=== PATIENT | female | born 1985 | race Caucasian/White ===

== ENCOUNTER 2019-08-21 12:56 | Emergency (ER) | payer MEDICAID, OTHER ==
[~2019-08-21] VITALS: Ht 152.4 cm; Wt 63.6 kg
[2019-08-21 12:59] VITALS: BP 107/72
[2019-08-21] MEDS ORDERED: CLIN-90 PO (13:06)
[2019-08-21] MEDS ORDERED: ketorolac tromethamine 15mg/ml inj. IM ONE (13:15)
== END 2019-08-21 13:37 | disposition home or self-care (01) ==
LOC: ER 12:57
DX: S02.5XXA Fracture of tooth (traumatic), initial encounter for closed fracture (principal); F15.90 Other stimulant use, unspecified, uncomplicated; F11.90 Opioid use, unspecified, uncomplicated; Z79.899 Other long term (current) drug therapy; Z88.8 Allergy status to other drugs, medicaments and biological substances; X58.XXXA Exposure to other specified factors, initial encounter; Y93.89 Activity, other specified; Y92.89 Other specified places as the place of occurrence of the external cause; Y99.8 Other external cause status
CPT/HCPCS: 96372; 99283; J1885

== ENCOUNTER 2019-10-17 22:19 | Emergency (ER) | payer MEDICAID ==
[~2019-10-17] VITALS: Ht 152.4 cm; Wt 63.6 kg
[~2019-10-17 22:19] MED LIST: CLIN-97 PO
[2019-10-17] MEDS ORDERED: normal saline 1000ML IV soln IVB ONE (22:40)
[2019-10-17] MEDS ORDERED: ketorolac tromethamine 15mg/ml inj. IV ONE (22:40)
[2019-10-17 23:20] LABS: CLARITY,URINE CLEAR (Clear); COLOR,URINE YELLOW (Yellow); GLUCOSE, URINE NEGATIVE (Neg); KETONES,URINE NEGATIVE (Neg); LEUKOCYTE ESTERASE ,URINE NEGATIVE (Neg); NITRITES, URINE NEGATIVE (Neg); OCCULT BLOOD,URINE NEGATIVE (Neg); PH,URINE 5.5 (4.8-8.0); PROTEIN,URINE NEGATIVE (Neg); UROBILINOGEN,URINE 0.2 E.U/dL (0.2-1.0)
[2019-10-17 23:20] LABS: BASOPHILS % (AUTO) 0.3 % (0-1); EOSINOPHILS # (AUTO) 0.2 X10'3 (0-0.9); EOSINOPHILS % (AUTO) 2.6 % (0-6); HEMATOCRIT 42.6 % (35.0-45.0); HEMOGLOBIN 14.5 g/dl (12.0-16.0); LYMPHOCYTES # (AUTO) 2.5 X10'3 (1.1-4.8); LYMPHOCYTES % (AUTO) 33.3 % (21-51); MEAN CORPUSCULAR HGB CONC 33.9 g/dL (33.0-36.5); MEAN CORPUSCULAR VOLUME 91.5 FL (78-98); MONOCYTES # (AUTO) 0.7 X10'3 (0-0.9); MONOCYTES % (AUTO) 9.9 % (2-12); NEUTROPHILS % (AUTO) 53.9 % (42-75); PLATELET COUNT 287 X10'3 (140-440); RED BLOOD COUNT 4.66 X10'6 (4.20-5.60); RED CELL DISTRIBUTION WIDTH 12.9 % (11.5-14.5); WHITE BLOOD COUNT 7.4 X10'3 (4.5-11.0)
[2019-10-17 23:21] LABS: UA COLLECTION TYPE CLN CATCH MIDSTREAM
[2019-10-17 23:28] LABS: ALANINE AMINOTRANSFERASE 40 U/L (12-78); ALBUMIN 3.4 G/DL (3.4-5.0); ALKALINE PHOSPHATASE 82 IU/L (46-116); ANION GAP 8 (8-16); ASPARTATE AMINO TRANSFERASE 25 U/L (10-37); BILIRUBIN,TOTAL 0.3 MG/DL (0.1-1.0); BLOOD UREA NITROGEN 15 MG/DL (7-18); CALCIUM 9.1 MG/DL (8.5-10.1); CHLORIDE 106 MMOL/L (99-107); CREATININE 1.07 MG/DL (0.40-0.90); GLUCOSE 100 MG/DL (70-104); POTASSIUM 3.6 MMOL/L (3.5-5.1); SODIUM 141 MMOL/L (135-145); TOTAL PROTEIN 6.9 G/DL (6.4-8.2); eGFR 58 ML/MIN
[2019-10-17] MEDS ORDERED: IBUP-1985 PO (23:58)
[2019-10-18 00:06] VITALS: BP 106/73
== END 2019-10-18 00:08 | disposition home or self-care (01) ==
LOC: ER 22:19
DX: R07.81 Pleurodynia (principal); R10.11 Right upper quadrant pain; F17.200 Nicotine dependence, unspecified, uncomplicated; F15.90 Other stimulant use, unspecified, uncomplicated; F11.90 Opioid use, unspecified, uncomplicated; Z87.442 Personal history of urinary calculi; Z88.6 Allergy status to analgesic agent; Z88.8 Allergy status to other drugs, medicaments and biological substances; Z79.2 Long term (current) use of antibiotics; Z79.899 Other long term (current) drug therapy
CPT/HCPCS: 36415; 71046; 80053; 81003; 85025; 93005; 96374; 99285; J1885; J7030

== ENCOUNTER 2019-11-26 12:05 | Emergency (ER) | payer MEDICAID ==
[~2019-11-26] VITALS: Ht 152.4 cm; Wt 70.2 kg
[~2019-11-26 12:05] MED LIST changes: +IBUP-1985 PO
[2019-11-26 12:24] VITALS: BP 131/78
== END 2019-11-26 13:15 | disposition home or self-care (01) ==
LOC: ER 12:06
DX: S63.502A Unspecified sprain of left wrist, initial encounter (principal); F15.90 Other stimulant use, unspecified, uncomplicated; F11.90 Opioid use, unspecified, uncomplicated; Z88.6 Allergy status to analgesic agent; Z88.8 Allergy status to other drugs, medicaments and biological substances; Z79.2 Long term (current) use of antibiotics; Z79.899 Other long term (current) drug therapy; W22.8XXA Striking against or struck by other objects, initial encounter; Y93.89 Activity, other specified; Y92.410 Unspecified street and highway as the place of occurrence of the external cause; Y99.8 Other external cause status
CPT/HCPCS: 29125; 73110; 73130; 99284

== ENCOUNTER → 2020-03-01 | Emergency (ER) | payer MEDICAID ==
[~2020-03-01] VITALS: Ht 152.4 cm; Wt 69.0 kg
[~2020-03-01] MED LIST changes: +ciprofloxacin 0.3% 2.5ml ophthalmic solution RIGHTEYE ONE; +proparacaine 0.5% ophthalmic drops 15ml RIGHTEYE ONE
[2020-03-01 20:26] VITALS: BP 132/96
== END | disposition home or self-care (01) ==
LOC: ER 20:28
DX: S05.01XA Injury of conjunctiva and corneal abrasion without foreign body, right eye, initial encounter (principal); F15.90 Other stimulant use, unspecified, uncomplicated; F11.90 Opioid use, unspecified, uncomplicated; Z87.442 Personal history of urinary calculi; Z88.8 Allergy status to other drugs, medicaments and biological substances; Z79.899 Other long term (current) drug therapy; X58.XXXA Exposure to other specified factors, initial encounter; Y93.89 Activity, other specified; Y92.89 Other specified places as the place of occurrence of the external cause; Y99.8 Other external cause status
CPT/HCPCS: 99283

== ENCOUNTER 2020-04-03 19:16 | Emergency (ER) | payer MEDICAID ==
[~2020-04-03] VITALS: Ht 152.4 cm; Wt 68.2 kg
[~2020-04-03 19:16] MED LIST changes: -ciprofloxacin 0.3% 2.5ml ophthalmic solution RIGHTEYE ONE; -proparacaine 0.5% ophthalmic drops 15ml RIGHTEYE ONE
[2020-04-03 19:37] VITALS: BP 116/83
[2020-04-03 19:58] LABS: URINE HCG NEGATIVE (NEG)
[2020-04-03 20:14] LABS: CLARITY,URINE CLOUDY (Clear); GLUCOSE, URINE NEGATIVE (Neg); KETONES,URINE NEGATIVE (Neg); LEUKOCYTE ESTERASE ,URINE SMALL (Neg); NITRITES, URINE NEGATIVE (Neg); OCCULT BLOOD,URINE NEGATIVE (Neg); PROTEIN,URINE NEGATIVE (Neg); UROBILINOGEN,URINE >=8.0 E.U/dL (0.2-1.0)
[2020-04-03 20:22] LABS: UA COLLECTION TYPE CLN CATCH MIDSTREAM
[2020-04-03 20:23] LABS: COLOR,URINE DARK YELLOW (Yellow)
[2020-04-03 20:25] LABS: BACTERIA,URINE 1+ /HPF (Neg); MUCUS STRANDS MANY /LPF (Neg); RBC,URINE NONE SEEN /HPF (0-2)
[2020-04-03 20:26] LABS: CAL OXALATE CRYSTALS 4+ /HPF (NEGATIVE); SQUAMOUS EPITHELIAL CELL,UR MANY /LPF (FEW)
[2020-04-03] MEDS ORDERED: azithromycin 250mg tablet PO ONE (20:45)
[2020-04-03] MEDS ORDERED: CefTRIAXone 250MG IM Kit w/LIDOcaine IM ONE (20:45)
[2020-04-03] MEDS ORDERED: SULF1TAB49 PO (20:55)
[2020-04-03] MEDS ORDERED: PHEN-824 PO (20:55)
== END 2020-04-03 21:19 | disposition home or self-care (01) ==
LOC: ER 19:18
DX: R30.0 Dysuria (principal); N93.8 Other specified abnormal uterine and vaginal bleeding; F15.90 Other stimulant use, unspecified, uncomplicated; F11.90 Opioid use, unspecified, uncomplicated; Z87.442 Personal history of urinary calculi; Z88.6 Allergy status to analgesic agent; Z88.8 Allergy status to other drugs, medicaments and biological substances; Z79.2 Long term (current) use of antibiotics; Z79.899 Other long term (current) drug therapy
CPT/HCPCS: 36415; 81001; 81025; 87491; 87591; 96372; 99283; J0696

== ENCOUNTER 2020-04-20 13:36 | Emergency (ER) | payer MEDICAID ==
[~2020-04-20] VITALS: Ht 152.4 cm; Wt 67.6 kg
[~2020-04-20 13:36] MED LIST changes: +PHEN-824 PO
[2020-04-20] MEDS ORDERED: normal saline 1000ML IV soln IVB ONE (14:10)
[2020-04-20 14:13] LABS: URINE HCG NEGATIVE (NEG)
[2020-04-20 14:24] LABS: CLARITY,URINE SLIGHTLY CLOUDY (Clear); COLOR,URINE STRAW (Yellow); GLUCOSE, URINE NEGATIVE (Neg); KETONES,URINE NEGATIVE (Neg); LEUKOCYTE ESTERASE ,URINE TRACE (Neg); NITRITES, URINE NEGATIVE (Neg); OCCULT BLOOD,URINE NEGATIVE (Neg); PH,URINE 5.5 (4.8-8.0); PROTEIN,URINE NEGATIVE (Neg); UA COLLECTION TYPE CLN CATCH MIDSTREAM; UROBILINOGEN,URINE 0.2 E.U/dL (0.2-1.0)
[2020-04-20 14:30] LABS: RBC,URINE NONE SEEN /HPF (0-2); WBC,URINE 0-4 /HPF (0-4)
[2020-04-20 14:31] LABS: BACTERIA,URINE FEW /HPF (Neg); MUCUS STRANDS NONE SEEN /LPF (Neg); SQUAMOUS EPITHELIAL CELL,UR FEW /LPF (FEW)
[2020-04-20 14:36] LABS: BASOPHILS % (AUTO) 0.3 % (0-1); EOSINOPHILS # (AUTO) 0.2 X10'3 (0-0.9); EOSINOPHILS % (AUTO) 2.6 % (0-6); HEMATOCRIT 45.4 % (35.0-45.0); HEMOGLOBIN 15.2 g/dl (12.0-16.0); LYMPHOCYTES % (AUTO) 29.3 % (21-51); MEAN CORPUSCULAR HEMOGLOBIN 30.6 PG (27.0-31.0); MEAN CORPUSCULAR HGB CONC 33.5 g/dL (33.0-36.5); MEAN CORPUSCULAR VOLUME 91.5 FL (78-98); MEAN PLATELET VOLUME 9.5 FL (7.4-10.4); MONOCYTES # (AUTO) 0.5 X10'3 (0-0.9); MONOCYTES % (AUTO) 7.9 % (2-12); NEUTROPHILS % (AUTO) 59.9 % (42-75); PLATELET COUNT 252 X10'3 (140-440); RED BLOOD COUNT 4.96 X10'6 (4.20-5.60); RED CELL DISTRIBUTION WIDTH 13.3 % (11.5-14.5); WHITE BLOOD COUNT 6.8 X10'3 (4.5-11.0)
[2020-04-20 14:51] LABS: ALANINE AMINOTRANSFERASE 24 U/L (12-78); ALBUMIN 3.6 G/DL (3.4-5.0); ALKALINE PHOSPHATASE 81 IU/L (46-116); ANION GAP 13 (8-16); ASPARTATE AMINO TRANSFERASE 17 U/L (10-37); BILIRUBIN,TOTAL 0.5 MG/DL (0.1-1.0); BLOOD UREA NITROGEN 10 MG/DL (7-18); BUN/CREATININE RATIO 14.1 (6.6-38.0); CALCIUM 8.6 MG/DL (8.5-10.1); CHLORIDE 105 MMOL/L (99-107); CREATININE 0.71 MG/DL (0.40-0.90); GLUCOSE 81 MG/DL (70-104); POTASSIUM 3.7 MMOL/L (3.5-5.1); SODIUM 139 MMOL/L (135-145); TOTAL CARBON DIOXIDE 21.5 MMOL/L (24-32); TOTAL PROTEIN 7.1 G/DL (6.4-8.2); eGFR > 90 ML/MIN
[2020-04-20] MEDS ORDERED: HYDROcodone/acetaminophen 10/325mg tab PO ONE (15:25)
[2020-04-20] MEDS ORDERED: TRAM50TA2 PO (16:11)
[2020-04-20 16:28] VITALS: BP 119/64
== END 2020-04-20 16:29 | disposition home or self-care (01) ==
LOC: ER 13:37
DX: K80.50 Calculus of bile duct without cholangitis or cholecystitis without obstruction (principal); R10.11 Right upper quadrant pain; M54.89 Other dorsalgia; R11.0 Nausea; F17.200 Nicotine dependence, unspecified, uncomplicated; F15.90 Other stimulant use, unspecified, uncomplicated; Z87.442 Personal history of urinary calculi; Z98.890 Other specified postprocedural states; Z88.6 Allergy status to analgesic agent; Z88.8 Allergy status to other drugs, medicaments and biological substances; Z79.2 Long term (current) use of antibiotics; Z79.899 Other long term (current) drug therapy
CPT/HCPCS: 36415; 74176; 76700; 80053; 81001; 81025; 85025; 87088; 96360; 96361; 99285; J7030

== ENCOUNTER 2020-06-14 14:14 | Emergency (ER) | payer MEDICAID ==
[~2020-06-14] VITALS: Ht 152.4 cm; Wt 62.5 kg
[2020-06-14 14:43] VITALS: BP 107/75
[2020-06-14 16:33] LABS: CLARITY,URINE SLIGHTLY CLOUDY (Clear); COLOR,URINE STRAW (Yellow); GLUCOSE, URINE NEGATIVE (Neg); KETONES,URINE NEGATIVE (Neg); LEUKOCYTE ESTERASE ,URINE NEGATIVE (Neg); NITRITES, URINE NEGATIVE (Neg); OCCULT BLOOD,URINE NEGATIVE (Neg); PROTEIN,URINE NEGATIVE (Neg); UROBILINOGEN,URINE 0.2 E.U/dL (0.2-1.0)
[2020-06-14 16:39] LABS: SQUAMOUS EPITHELIAL CELL,UR MANY /LPF (FEW); UA COLLECTION TYPE CLN CATCH MIDSTREAM
[2020-06-14 16:40] LABS: BACTERIA,URINE FEW /HPF (Neg); MUCUS STRANDS NONE SEEN /LPF (Neg); RBC,URINE 0-2 /HPF (0-2); WBC,URINE 0-4 /HPF (0-4)
--- NOTE | 2020-06-14 17:25 | NUR ---
Attempted to call back to room for the third time with no answer. Attempted to call patient at listed phone number and left voice mail. Dr. Julio michaud.
== END 2020-06-14 17:30 | disposition left against medical advice (07) ==
LOC: ER 14:15
DX: R31.9 Hematuria, unspecified (principal); Z53.21 Procedure and treatment not carried out due to patient leaving prior to being seen by health care provider
CPT/HCPCS: 81001

== ENCOUNTER 2021-03-30 12:40 | Emergency (ER) | payer MEDICAID ==
[~2021-03-30] VITALS: Ht 152.4 cm; Wt 56.4 kg
[2021-03-30 13:28] LABS: URINE HCG NEGATIVE (NEG)
[2021-03-30 13:33] LABS: BASOPHILS % (AUTO) 0.2 % (0-1); EOSINOPHILS # (AUTO) 0.1 X10'3 (0-0.9); EOSINOPHILS % (AUTO) 1.8 % (0-6); HEMATOCRIT 43.1 % (35.0-45.0); HEMOGLOBIN 14.3 g/dl (12.0-16.0); LYMPHOCYTES # (AUTO) 1.6 X10'3 (1.1-4.8); LYMPHOCYTES % (AUTO) 31.6 % (21-51); MEAN CORPUSCULAR HEMOGLOBIN 30.1 PG (27.0-31.0); MEAN CORPUSCULAR HGB CONC 33.2 g/dL (33.0-36.5); MEAN CORPUSCULAR VOLUME 90.8 FL (78-98); MEAN PLATELET VOLUME 9.7 FL (7.4-10.4); MONOCYTES # (AUTO) 0.4 X10'3 (0-0.9); MONOCYTES % (AUTO) 7.4 % (2-12); NEUTROPHILS # (AUTO) 2.9 X10'3 (1.8-7.7); PLATELET COUNT 223 X10'3 (140-440); RED BLOOD COUNT 4.75 X10'6 (4.20-5.60); RED CELL DISTRIBUTION WIDTH 14.2 % (11.5-14.5); WHITE BLOOD COUNT 4.9 X10'3 (4.5-11.0)
[2021-03-30 13:34] LABS: CLARITY,URINE CLOUDY (Clear); COLOR,URINE YELLOW (Yellow); GLUCOSE, URINE NEGATIVE (Neg); KETONES,URINE NEGATIVE (Neg); NITRITES, URINE NEGATIVE (Neg); OCCULT BLOOD,URINE NEGATIVE (Neg); PROTEIN,URINE NEGATIVE (Neg); UA COLLECTION TYPE CLN CATCH MIDSTREAM
[2021-03-30 13:35] LABS: LEUKOCYTE ESTERASE ,URINE NEGATIVE (Neg); UROBILINOGEN,URINE 0.2 E.U/dL (0.2-1.0)
[2021-03-30 13:41] LABS: ALANINE AMINOTRANSFERASE 31 U/L (12-78); ALBUMIN 3.3 G/DL (3.4-5.0); ALKALINE PHOSPHATASE 73 IU/L (46-116); ANION GAP 10 (8-16); ASPARTATE AMINO TRANSFERASE 21 U/L (10-37); BILIRUBIN,TOTAL 0.5 MG/DL (0.1-1.0); BLOOD UREA NITROGEN 11 MG/DL (7-18); BUN/CREATININE RATIO 13.4 (6.6-38.0); CALCIUM 8.4 MG/DL (8.5-10.1); CHLORIDE 110 MMOL/L (99-107); CREATININE 0.82 MG/DL (0.40-0.90); GLUCOSE 119 MG/DL (70-104); POTASSIUM 3.7 MMOL/L (3.5-5.1); SODIUM 142 MMOL/L (135-145); TOTAL CARBON DIOXIDE 22.1 MMOL/L (24-32); TOTAL PROTEIN 6.6 G/DL (6.4-8.2); eGFR 78 ML/MIN
[2021-03-30 14:09] LABS: BACTERIA,URINE 2+ /HPF (Neg); RBC,URINE 0-2 /HPF (0-2); SQUAMOUS EPITHELIAL CELL,UR MANY /LPF (FEW); WBC,URINE 0-4 /HPF (0-4)
[2021-03-30] MEDS ORDERED: ketorolac tromethamine 15mg/ml inj. IM ONE (16:00)
[2021-03-30] MEDS ORDERED: IBUP-1985 PO (16:21)
[2021-03-30] MEDS ORDERED: TRAM1TAB7 PO (16:21)
[2021-03-30 16:37] VITALS: BP 105/77
== END 2021-03-30 16:53 | disposition home or self-care (01) ==
LOC: ER 12:41
DX: N20.0 Calculus of kidney (principal); M54.50 Low back pain, unspecified; R10.84 Generalized abdominal pain; F15.90 Other stimulant use, unspecified, uncomplicated; F11.90 Opioid use, unspecified, uncomplicated; Z87.442 Personal history of urinary calculi; Z98.890 Other specified postprocedural states; Z88.6 Allergy status to analgesic agent; Z88.8 Allergy status to other drugs, medicaments and biological substances; Z79.2 Long term (current) use of antibiotics; Z79.899 Other long term (current) drug therapy
CPT/HCPCS: 36415; 76770; 80053; 81001; 81025; 85025; 96372; 99284; J1885

== ENCOUNTER 2023-11-27 10:14 | Emergency (ER) | payer MEDICAID ==
[~2023-11-27] VITALS: Ht 152.4 cm; Wt 41.5 kg
[2023-11-27 11:10] LABS: URINE HCG NEGATIVE (NEG)
[2023-11-27 11:11] LABS: BILIRUBIN,URINE NEGATIVE (Neg); CLARITY,URINE CLOUDY (Clear); COLOR,URINE YELLOW (Yellow); GLUCOSE, URINE NEGATIVE (Neg); KETONES,URINE NEGATIVE (Neg); LEUKOCYTE ESTERASE ,URINE MODERATE (Neg); NITRITES, URINE NEGATIVE (Neg); OCCULT BLOOD,URINE SMALL (Neg); PROTEIN,URINE 30 mg/dl (Neg); UROBILINOGEN,URINE 0.2 E.U/dL (0.2-1.0)
[2023-11-27 11:13] LABS: UA COLLECTION TYPE CLN CATCH MIDSTREAM
[2023-11-27 11:42] LABS: BACTERIA,URINE FEW /HPF (Neg); SQUAMOUS EPITHELIAL CELL,UR MODERATE /LPF (FEW); TRANSITIONAL EPI CELLS,URINE FEW /HPF; WBC,URINE TNTC /HPF (0-4)
[2023-11-27 11:51] LABS: BASOPHILS % (AUTO) 0.2 % (0-1); EOSINOPHILS % (AUTO) 0.5 % (0-6); HEMATOCRIT 44.1 % (35.0-45.0); HEMOGLOBIN 14.7 g/dl (12.0-16.0); LYMPHOCYTES # (AUTO) 1.4 X10'3 (1.1-4.8); LYMPHOCYTES % (AUTO) 15.4 % (21-51); MEAN CORPUSCULAR HEMOGLOBIN 29.4 PG (27.0-31.0); MEAN CORPUSCULAR HGB CONC 33.3 g/dL (33.0-36.5); MEAN CORPUSCULAR VOLUME 88.4 FL (78-98); MEAN PLATELET VOLUME 8.5 FL (7.4-10.4); MONOCYTES # (AUTO) 0.5 X10'3 (0-0.9); MONOCYTES % (AUTO) 5.4 % (2-12); NEUTROPHILS # (AUTO) 7.3 X10'3 (1.8-7.7); NEUTROPHILS % (AUTO) 78.5 % (42-75); PLATELET COUNT 353 X10'3 (140-440); RED BLOOD COUNT 4.99 X10'6 (4.20-5.60); RED CELL DISTRIBUTION WIDTH 15.1 % (11.5-14.5); WHITE BLOOD COUNT 9.2 X10'3 (4.5-11.0)
[2023-11-27 12:05] LABS: ANION GAP 6 (8-16); BLOOD UREA NITROGEN 14 MG/DL (7-18); CALCIUM 8.2 MG/DL (8.5-10.1); CHLORIDE 105 MMOL/L (99-107); GLUCOSE 88 MG/DL (70-104); SODIUM 138 MMOL/L (135-145); TOTAL CARBON DIOXIDE 26.8 MMOL/L (24-32); eCRCL 71 ML/MIN; eGFR > 90 ML/MIN
[2023-11-27] MEDS ORDERED: DOXY-11 PO (12:42)
[2023-11-27] MEDS ORDERED: NAPR-56 PO (12:43)
[2023-11-27] MEDS: CefTRIAXone 500MG IM Kit w/LIDOcaine IM ONE (12:51)
[2023-11-27 12:56] VITALS: BP 125/91; PULSE 94; RESP 16; TEMP 98.8; O2SAT 97
[2023-11-27 13:57] LABS: SYPHILIS SCREENING TEST POC NEGATIVE (Negative)
[2023-11-29 15:19] LABS: CHLAMYDIA TRACHOMATIS, NAA Negative (Negative)
== END 2023-11-27 12:59 | disposition home or self-care (01) ==
LOC: ER 10:15
DX: S20.211A Contusion of right front wall of thorax, initial encounter (principal); N39.0 Urinary tract infection, site not specified; N89.8 Other specified noninflammatory disorders of vagina; R10.2 Pelvic and perineal pain; F11.90 Opioid use, unspecified, uncomplicated; F15.90 Other stimulant use, unspecified, uncomplicated; Z88.8 Allergy status to other drugs, medicaments and biological substances; Z79.2 Long term (current) use of antibiotics; Z79.899 Other long term (current) drug therapy; X58.XXXA Exposure to other specified factors, initial encounter; Y93.89 Activity, other specified; Y92.89 Other specified places as the place of occurrence of the external cause; Y99.8 Other external cause status
CPT/HCPCS: 36415; 71101; 80048; 81001; 81025; 85025; 87088; 87491; 87591; 96372; 99284; J0696; Q0112; 87077; 87186

== ENCOUNTER 2024-01-04 10:52 | Emergency (ER) | payer MEDICAID | END 2024-01-04 14:41 | disposition left against medical advice (07) | LOC: ER 10:53 | DX: R11.2 Nausea with vomiting, unspecified (principal); Z53.21 Procedure and treatment not carried out due to patient leaving prior to being seen by health care provider; Z88.8 Allergy status to other drugs, medicaments and biological substances ==

== ENCOUNTER 2024-11-07 23:00 | Inpatient (IN) | payer MEDICAID ==
[~2024-11-07] VITALS: Ht 152.4 cm; Wt 47.3 kg
--- NOTE | 2024-11-07 23:06 | Physician Documentation ---
History of Present Illness ~ Chief Complaint: Bloody Stools Stated Complaint: GI BLEED Time Seen by MD: 23:05 Primary Medical Doctor: Pascual Amador Source: patient, RN/MD, EMS HPI 38-year-old female, who is transferred from an outside hospital with concern for an upper GI bleed. I received a phone call on this patient from an outside hospital. She was seen about a week ago for nausea and vomiting, and returned again today vomiting blood and having black tarry stools. Her hemoglobin significantly dropped over the past week. Her presentation was concerning for an upper GI bleed. She was given nausea medications, IV fluids, and Protonix. Her potassium was low and so she was given potassium repletion. She was transferred here for admission and GI consult. Per EMS, no vomiting during transport, no acute events. Here in the ED, the patient reports she is having epigastric pain, but denies Medication Reconciliation Allergies: Coded Allergies: naproxen (Verified Allergy, Intermediate, 03/30/21) RASH AND DIFFICULTY BREATHING cetirizine HCl (Verified Allergy, Unknown, 08/05/19) Scheduled Clindamycin HCL* (Clindamycin HCL*), 1 CAP PO Q8H Ibuprofen (Ibuprofen), 1 TAB PO Q8H Ibuprofen (Ibuprofen), 1 TAB PO Q8H Phenazopyridine HCl (Pyridium), 1 TAB PO Q8H Past Medical History Past Medical History: Kidney Stones, *PSYCH* Past Surgical History: other Other Past Surgical History: ureteral stenting Alcohol Use: None Drug Use: methamphetamine, heroin Lives In: Home Occupation: employed Review of Systems Gastrointestinal: Reports: nausea, vomiting, diarrhea, melena, hematemesis Physical Exam Vital Signs: Temperature: 98.0, Source: Oral, Heart Rate: 98, Respiratory Rate: 15, BP: 106/84, Pulse Oximetry: 98, Weight: 47.270 Oxygen Flow Rate: 0 General Appearance General:This is a young woman, appears older than stated age, not in distress, arrives by EMS HEENT: Atraumatic, oropharynx appears dry Heart: mild tachycardic, appears regular Lungs: normal work of breathing, normal oxygen saturation on room air Abdomen: Soft, nondistended, tender to palpation in the epigastric region only, no rebound or guarding Neuro: Alert and oriented Psychiatric: Calm and cooperative with exam Progress Results/Orders Results/Orders Orders - SRIKANTH LANDA MD Hospitalist (11/07/24 23:14) Completed Orders - SRIKANTH LANDA MD Morphine 4mg/Ml Inj. (Morphine Inj.) (11/07/24 23:03) Ondansetron Inj. (Zofran 4mg/2ml Vial) (11/07/24 23:03) Cbc/Diff (11/07/24 23:03) CMP (11/07/24 23:03) BMP (11/07/24 23:03) Type And Screen (11/07/24 23:03) Potassium Cl 20meq/100ml Bag (Potassium (11/08/24 00:20) Hgb A1c (11/07/24 23:30) MG (11/07/24:30) PBNP (11/07/24:30) Medications Received in ER Medications (Trade) Dose Ordered Sig/Blue Route PRN Reason Start Time Stop Time Status Last Admin Dose Admin (morphine inj.) 4 mg ONCE STAT IV 11/07/24 23:03 11/07/24 23:05 DC 11/08/24 00:22 4 MG (Zofran 4mg/2ml vial) 4 mg ONCE STAT IV 11/07/24 23:03 11/07/24 23:05 DC 11/08/24 00:20 4 MG Potassium Chloride 100 ml @ 100 mls/hr Q1H IV 11/08/24 00:20 11/08/24 01:19 DC 11/08/24 00:54 100 MLS/HR (Dilaudid inj.) 0.5 mg Q4H PRN IV SEVERE PAIN 7-10 11/08/24 00:50 11/08/24 03:32 0.5 MG Sodium Chloride 1,000 ml @ 100 mls/hr Q10H IV 11/08/24 00:50 11/08/24 02:19 100 MLS/HR Vital Signs 11/07/24 11/07/24 11/07/24 11/08/24 23:01 23:14 23:14 00:22 Temp 98.0 Pulse 98 110 Resp 15 16 18 B/P (MAP) 106/84 111/83 (92) Pulse Ox 98 98 O2 Flow Rate 0 0 Laboratory Tests Test 11/07/24 23:30 White Blood Count 8.1 Red Blood Count 3.51 L Hemoglobin 10.8 L Hematocrit 31.1 L Mean Corpuscular Volume 88.6 Mean Corpuscular Hemoglobin 30.7 Mean Corpuscular Hemoglobin Concent 34.6 Red Cell Distribution Width 12.7 Platelet Count 236 Mean Platelet Volume 9.4 Neutrophils (%) (Auto) 59.1 Lymphocytes (%) (Auto) 29.7 Monocytes (%) (Auto) 8.9 Eosinophils (%) (Auto) 2.0 Basophils (%) (Auto) 0.3 Neutrophils # (Auto) 4.8 Lymphocytes # (Auto) 2.4 Monocytes # (Auto) 0.7 Eosinophils # (Auto) 0.2 Basophils # (Auto) 0.0 CBC Comment Sodium Level 136 Potassium Level 2.8 *L Chloride Level 103 Carbon Dioxide Level 28.4 Anion Gap 5 L Blood Urea Nitrogen 30 H Creatinine 0.74 Estimated GFR/1.73 m2 87 BUN/Creatinine Ratio 40.5 H Glucose Level 98 Hemoglobin A1c 5.3 Calcium Level 7.1 L Magnesium Level 2.6 H Total Bilirubin 0.3 Aspartate Amino Transf (AST/SGOT) 17 Alanine Aminotransferase (ALT/SGPT) 10 L Alkaline Phosphatase 48 Troponin I High Sensitivity 11 Pro-B-Type Natriuretic Peptide 56 Total Protein 4.8 L Albumin 2.4 L Globulin 2.4 L Albumin/Globulin Ratio 1.0 L Chemistry Comments Consults/PCP Consults/PCP : Additional Comment Consult: I spoke to the internal medicine service, for admission in the hospital Medical Decision Making Additional info obtained from: other Findings Reviewed records from outside hospital, which show a new anemia and hypokalemia Diff Dx GI Bleed:Consideration: Include: Blood loss anemia, Diverticulosis, Esophageal varicies, Esophagitis, Gastritis, Inflammatory BD, PUD Additional Comments The patient presents with a history and exam that seem most consistent with an upper GI bleed. She did have a significant change in her hemoglobin over the past week. Repeat labs here show no significantly worsening anemia. She does have hypokalemia and she was given IV potassium. Type and screen ordered. She will be admitted to the medicine service with GI consult in the morning. Departure Impression: Primary Impression: GI bleed Additional Impression: Acute blood loss anemia Referrals: NO PRIMARY CARE PROVIDER (PCP) Signature Scribe Signature: gerald Attestation: SRIKANTH Molina MD November 07, 2024 23:06
[2024-11-07 23:52] LABS: BASOPHILS % (AUTO) 0.3 % (0-1); EOSINOPHILS # (AUTO) 0.2 X10'3 (0-0.9); HEMATOCRIT 31.1 % (35.0-45.0); HEMOGLOBIN 10.8 g/dl (12.0-16.0); LYMPHOCYTES # (AUTO) 2.4 X10'3 (1.1-4.8); LYMPHOCYTES % (AUTO) 29.7 % (21-51); MEAN CORPUSCULAR HEMOGLOBIN 30.7 PG (27.0-31.0); MEAN CORPUSCULAR HGB CONC 34.6 g/dL (33.0-36.5); MEAN CORPUSCULAR VOLUME 88.6 FL (78-98); MEAN PLATELET VOLUME 9.4 FL (7.4-10.4); MONOCYTES # (AUTO) 0.7 X10'3 (0-0.9); MONOCYTES % (AUTO) 8.9 % (2-12); NEUTROPHILS # (AUTO) 4.8 X10'3 (1.8-7.7); NEUTROPHILS % (AUTO) 59.1 % (42-75); PLATELET COUNT 236 X10'3 (140-440); RED BLOOD COUNT 3.51 X10'6 (4.20-5.60); RED CELL DISTRIBUTION WIDTH 12.7 % (11.5-14.5); WHITE BLOOD COUNT 8.1 X10'3 (4.5-11.0)
[2024-11-08 00:11] LABS: ALANINE AMINOTRANSFERASE 10 U/L (12-78); ALBUMIN 2.4 G/DL (3.4-5.0); ALKALINE PHOSPHATASE 48 IU/L (46-116); ANION GAP 5 (8-16); ASPARTATE AMINO TRANSFERASE 17 U/L (10-37); BILIRUBIN,TOTAL 0.3 MG/DL (0.1-1.0); BLOOD UREA NITROGEN 30 MG/DL (7-18); BUN/CREATININE RATIO 40.5 (10.0-20.0); CALCIUM 7.1 MG/DL (8.5-10.1); CHLORIDE 103 MMOL/L (99-107); CREATININE 0.74 MG/DL (0.40-0.90); GLUCOSE 98 MG/DL (70-104); SODIUM 136 MMOL/L (135-145); TOTAL CARBON DIOXIDE 28.4 MMOL/L (24-32); TOTAL PROTEIN 4.8 G/DL (6.4-8.2); eCRCL 73 ML/MIN; eGFR 87 ML/MIN
[2024-11-08 00:16] LABS: POTASSIUM 2.8 MMOL/L (3.5-5.1)
[2024-11-08] MEDS: ondansetron/PF 4mg/2ml inj IV STA (00:20)
[2024-11-08] MEDS: morphine 4 MG/ML inj SYRINge IV STA (00:22)
[2024-11-08] MEDS ORDERED: bisacodyl 10mg suppository rectal RC PRN (00:50)
[2024-11-08] MEDS ORDERED: metoclopramide 5 mg/ml inj IV PRN (00:50)
[2024-11-08] MEDS ORDERED: magnesium Cl slow-release 64mg tablet PO PRN (00:50)
[2024-11-08] MEDS ORDERED: ondansetron/PF 4mg/2ml inj IV PRN (00:50)
[2024-11-08] MEDS ORDERED: magnesium sulf-water 4G/100mL 100 ML IV PRN (00:50)
[2024-11-08] MEDS ORDERED: potassium Cl 40MEQ/1/2NS 520ml 520 ML IV PRN (00:50)
[2024-11-08] MEDS ORDERED: magnesium sulf-water 2g/50mL 50 ML IV PRN (00:50)
[2024-11-08] MEDS ORDERED: mag hydrox/Alum hydrox/simeth 30ml oral suspension PO PRN (00:50)
[2024-11-08] MEDS ORDERED: acetaminophen 325mg tablet PO PRN (00:50)
[2024-11-08] MEDS: potassium Cl 20mEq/100mL bag 100 ML IV SCH (00:54)
[2024-11-08 01:26] LABS: HEMOGLOBIN A1C 5.3 % (4.5-6.2)
[2024-11-08 01:28] LABS: MAGNESIUM 2.6 MG/DL (1.5-2.4); PRO BRAIN NATRIURETIC PEPTIDE 56 PG/ML (0-125)
[2024-11-08] MEDS: normal saline 1000ml 1,000 ML IV SCH (02:19)
--- NOTE | 2024-11-08 02:34 | HISTORY AND PHYSICAL-Residence ---
History & Physical Providers to CC Resident Creating Document: NINOSKA WASSERMAN, RES ~ History of Present Illness Primary Medical Doctor: Rambo Amador Reason for Admit\Complaint: Black stools History of Present Illness This is a 38-year-old female with a history of heroin, meth amphetamine and heroin abuse, kidney stones s/p ureteral stent, hepatitis-C in remission, was transferred from the ED of [facility] for the management of upper GI bleed. Patient mentions that her symptoms started off as abdominal pain associated with nausea and vomiting one week ago in the lower abdominal quadrant. She was not able to hold anything down her stomach and was dehydrated and very sick. She took methamphetamine to help her abdominal pain after being abstinent for five years. After consumption of methamphetamine her abdominal pain worsened and started having coffee-ground emesis and black stools since the last two days. She denies any alcohol excessive alcohol consumption, usage of NSAIDs or history of any peptic ulcer disease. She did have a history of hepatitis-C in the past and finished six weeks treatment in outpatient. She smokes cigarettes occasionally and smoked amphetamine two days ago. She smokes marijuana regularly. She denies any fever, bright red stools. Allergies: Coded Allergies: naproxen (Verified Allergy, Intermediate, 03/30/21) RASH AND DIFFICULTY BREATHING cetirizine HCl (Verified Allergy, Unknown, 08/05/19) Home Medications Home Medications Active Ibuprofen 600 Mg Tablet 1 Tab PO Q8H 10 Days Pyridium (Phenazopyridine HCl) 100 Mg Tablet 1 Tab PO Q8H 3 Days Ibuprofen 600 Mg Tablet 1 Tab PO Q8H 10 Days Clindamycin HCL* (Clindamycin HCl) 300 Mg Capsule 1 Cap PO Q8H 7 Days Past Medical History Past Medical History Kidney stones, hepatitis-C, drug abuse Past Surgical History Surgical History Comment Ureteral stent placement Past Social History Smoking: Cigarettes Alcohol Use: Occasionally Drug Use: Methamphetamine, Heroin Lives with: Family Lives In: Home Occupation: employed ROS ROS Reviewed and negative except for the pertinent positives in HPI Exam Vitals: Vital Signs Date Time Temp Pulse Resp B/P (MAP) Pulse Ox O2 Delivery O2 Flow Rate FiO2 11/08/24 02:01 97 16 106/57 (73) 98 11/07/24 23:14 0 11/07/24 23:01 98.0 General: General: well developed, well nourished. Awake , alert, and oriented x4, resting comfortably in the bed, in mild acute distress . Dry mucous membranes HEENT: Atraumatic, normocephalic, EOMI, anicteric sclera B; pink conjunctiva; PERRLA, normal oropharynx, dry oral and nasal mucosa. Tympanic membrane , nose , throat clear. Neck: Trachea midline. Supple, full range of motion, no JVD, bruit , hepatojugular reflex , lymphadenopathy or masses, or other lesions Cardiac: Regular rhythm, regular rate no murmurs, rubs, or gallops. Normal S1 and S2, no S3 noticed. PMI is normal. Respiratory: Equal breath sounds bilaterally, no tachypnea; lungs clear to auscultation bilaterally, no wheezing ,rub or rales, or crackles. Chest wall is symmetric and without deformity. No signs of trauma. Chest wall is nontender. No signs of respiratory distress. Resonance is normal upon percussion bilaterally. Gastrointestinal: Abdomen symmetric, non-distended, soft, tender to palpation in the lower abdominal quadrants, normal bowel sounds x4 quadrant, hypoactive bowel sounds, no hepatosplenomegaly , no masses , no bruit, no flank pain bilaterally. No voluntary guarding, rebound, or rigidity. No tenderness to percussion. No pulsatile masses. Equal femoral pulses. No Kaplan's sign or McBurney point tenderness. Back; no CVA tenderness bilaterally, no deformities. Neck and back are without deformity as well. No tenderness noted on palpation of the spinous processes. Spinous processes are midline. Cervical, thoracic, and lumbar paraspinal muscles are not tender and are without spasm. : normal external genitalia, without lesions, swelling, masses or tenderness. Musculoskeletal: Extremities, normal range of motion, non-tender, muscle strength 5/5 x 4. Negative Homans signs bilaterally on lower extremity. Distal pulses full symmetrical, no clubbing, cyanosis , edema. Neurological: Speech is clear, alert, and oriented x 4. No motor or sensory deficit, deep tendon reflexes normal, cerebellar intact. Cranial nerves II-XII intact. Psych: Alert and or appropriate, normal affect. Vascular: Good distal pulses, which are equal x4; capillary refill less than 2 seconds. Skin: Warm, dry, no pallor, no rash or petechiae. Diagnostic Data Last Recorded Lab Results: 11/07/24 2330 11/07/24 233 Diagnostic Data: Laboratory Tests Test 11/08/24 02:00 Coagulation Comments Advance Care Planning Advanced Care plannin - 30 Minutes (I spent a total of 17 minutes on reviewing various resuscitative measures/ ACP with the patient at the time of admission. The patient has decided on a full code status) Additional Plan Acute abdominal pain Acute blood loss normocytic normochromic anemia Hypovolemic shock, present on admission Differential diagnosis include gastritis/peptic ulcer disease/mucosal tear secondary to methamphetamine abuse (Maggie-Zepeda tear) Hemoglobin dropped from 16.8-10.8 in past five days. Type and screen ordered for possible blood transfusion (ab positive). Monitor H&H Q12 hours. Patient denies any excessive alcohol use, usage of NSAIDs, history of gallstones, peptic ulcer disease. NPO after midnight for possible upper GI endoscopy tomorrow. Consult GI in the a.m. Started on IV Protonix drip. Started on IV fluids NS at the rate of 100 mL/hour. CT abdomen ordered to rule out other causes of acute abdominal pain including acute pancreatitis, appendicitis, cholecystitis. Follow up. Beta HCG ordered to rule out . However patient denies recent sexual activity. Follow up with lipase, U tox, TSH. Hypokalemia Hypoalbuminemia Hypocalcemia History of hepatitis-C, in remission Started on potassium replacement protocol. Corrected calcium is 8.4. Nutrition consult placed. Liver enzymes are within normal limits, she denies any history of cirrhosis of the liver. History of methamphetamine, cocaine abuse Active marijuana use Consulted hospital social worker Code Status: Full code DVT Prophylaxis: SCD in the view of GI bleed Analgesia/Sedation: Morphine p.r.n. Lines/Tubes: PIV Gi Prophylaxis: Protonix Nutrition: NPO PT: Yes Prognosis: Guarded Disposition: Pending endoscopy and GI consult. Admit to PCU with telemetry monitoring Ninoska Zavala MD Internal Medicine Resident PGY-1 Patient evaluated using HIPPA complaint AV device Agree with plan as discussed with resident Rambo Wheeler MD Date of Service: November 08, 2024 Billing Provider: RAMBO WHEELER MD, DEEPIKA BANDI, RES November 08, 2024 02:34 RAMBO WHEELER MD November 08, 2024 04:27
[2024-11-08 02:40] LABS: APTT 23 SECONDS (22-32); INR 1.1 INR; PROTHROMBIN TIME 10.9 SECONDS (9.0-12.0)
[2024-11-08 02:49] LABS: BILIRUBIN,URINE NEGATIVE (Neg); CLARITY,URINE CLEAR (Clear); COLOR,URINE YELLOW (Yellow); GLUCOSE, URINE NEGATIVE (Neg); KETONES,URINE NEGATIVE (Neg); LEUKOCYTE ESTERASE ,URINE NEGATIVE (Neg); NITRITES, URINE NEGATIVE (Neg); OCCULT BLOOD,URINE NEGATIVE (Neg); PROTEIN,URINE NEGATIVE (Neg); UROBILINOGEN,URINE 0.2 E.U/dL (0.2-1.0)
[2024-11-08 02:58] LABS: UA COLLECTION TYPE CLN CATCH MIDSTREAM
[2024-11-08 02:58] LABS: HEMATOCRIT 29.5 % (35.0-45.0); HEMOGLOBIN 10.4 g/dl (12.0-16.0); MEAN CORPUSCULAR HGB CONC 35.1 g/dL (33.0-36.5); MEAN CORPUSCULAR VOLUME 88.4 FL (78-98); MEAN PLATELET VOLUME 9.7 FL (7.4-10.4); PLATELET COUNT 234 X10'3 (140-440); RED BLOOD COUNT 3.34 X10'6 (4.20-5.60); WHITE BLOOD COUNT 7.4 X10'3 (4.5-11.0)
[2024-11-08] MEDS: HYDROmorphone inj. 0.5 MG/0.5 ML DISP.SYRIN IV PRN (03:32)
[2024-11-08 03:55] LABS: HCG SERUM QL NEGATIVE
[2024-11-08 04:11] LABS: LIPASE 80 U/L (16-77); THYROID STIMULATING HORMONE 1.07 ulU/ml (0.34-4.50)
[2024-11-08] MEDS: pantoprazole 40MG/NS 100ML BAG 100 ML IV SCH (04:21)
[2024-11-08] MEDS: pantoprazole 40MG/NS 100ML BAG 100 ML IV ONE (04:38)
--- NOTE | 2024-11-08 05:26 | RADIOLOGY REPORT ---
EXAM: CT CT ABDOMEN PELVIS HISTORY: Abdominal pain COMPARISON: CT ABDOMEN PELVIS on DOS: 04/20/20 TECHNIQUE: Helical CT images of the abdomen and pelvis were performed without IV contrast. Sagittal a nd coronal reformatted images were obtained. This CT exam was performed using one or more of the foll owing dose reduction techniques: Automated exposure control, adjustment of the mA and/or kv according to patient size, or the use of iterative reconstruction techniques. Radiation Dose: Abdomen/Pelvis: CTDIvol 5.05 mGy, DLP 222.14 mGy*cm. FINDINGS: CT abdomen: The lung bases are clear. The heart is not enlarged. There are bilateral renal cortical c ysts. The noncontrast liver, spleen, gallbladder, pancreas, and adrenal glands are unremarkable. No a bdominal aortic aneurysm. There may be gastric wall thickening diffusely, versus artifactual appearan ce due to lack of luminal distension. CT pelvis: No abnormal bowel dilatation or free air. There is trace free fluid in the pelvis. The kevyn endix, uterus, and urinary bladder are unremarkable. There are phleboliths in the pelvis. There is mi ld lumbar degenerative disc disease. IMPRESSION: 1. Bilateral renal cortical cysts, not well characterized without IV contrast. 2. Question of gastric wall thickening versus artifactual appearance due to lack of luminal distentio n. Correlate for signs and symptoms of possible gastritis. 3. Trace free fluid in the pelvis, likely physiologic. 4. No evidence of bowel obstruction, acute appendicitis, or other acute process in the abdomen or pel vis.
[2024-11-08] MEDS ORDERED: NO HOME MEDS (05:37)
--- NOTE | 2024-11-08 06:06 | RADIOLOGY REPORT ---
EXAM: DI CHEST,SINGLE VIEW Indication: Rule out free air under diaphragm Technique: Single frontal view of the chest was obtained Comparison: None FINDINGS: Lines and Tubes: None Lungs: No focal consolidation. Pleura: No effusion. No pneumothorax. Cardiomediastinal contours: Unremarkable Bones: No acute osseous abnormality. IMPRESSION: No acute cardiopulmonary disease. No evidence of free air.
[2024-11-08] MEDS: docusate sod 100mg capsule PO SCH (07:38)
[2024-11-08] MEDS: K and/or MAG REPLACEMENT MC SCH (08:00)
[2024-11-08 10:23] LABS: ALANINE AMINOTRANSFERASE 13 U/L (12-78); ALBUMIN 2.3 G/DL (3.4-5.0); ALKALINE PHOSPHATASE 47 IU/L (46-116); ANION GAP 4 (8-16); ASPARTATE AMINO TRANSFERASE 13 U/L (10-37); BILIRUBIN,TOTAL 0.3 MG/DL (0.1-1.0); BLOOD UREA NITROGEN 20 MG/DL (7-18); BUN/CREATININE RATIO 26.3 (10.0-20.0); CALCIUM 7.6 MG/DL (8.5-10.1); CHLORIDE 107 MMOL/L (99-107); CREATININE 0.76 MG/DL (0.40-0.90); GLUCOSE 126 MG/DL (70-104); MAGNESIUM 2.2 MG/DL (1.5-2.4); POTASSIUM 3.1 MMOL/L (3.5-5.1); SODIUM 140 MMOL/L (135-145); TOTAL CARBON DIOXIDE 28.9 MMOL/L (24-32); TOTAL PROTEIN 4.6 G/DL (6.4-8.2); eCRCL 71 ML/MIN; eGFR 84 ML/MIN
[2024-11-08] MEDS: potassium Cl 20 mEq SR tablet PO PRN (10:40)
[2024-11-08 15:59] LABS: HEMATOCRIT 28.3 % (35.0-45.0); HEMOGLOBIN 9.6 g/dl (12.0-16.0); MEAN CORPUSCULAR HEMOGLOBIN 30.2 PG (27.0-31.0); MEAN CORPUSCULAR HGB CONC 34.1 g/dL (33.0-36.5); MEAN CORPUSCULAR VOLUME 88.7 FL (78-98); MEAN PLATELET VOLUME 9.5 FL (7.4-10.4); PLATELET COUNT 191 X10'3 (140-440); RED BLOOD COUNT 3.19 X10'6 (4.20-5.60); RED CELL DISTRIBUTION WIDTH 13.3 % (11.5-14.5); WHITE BLOOD COUNT 4.4 X10'3 (4.5-11.0)
[2024-11-08] MEDS: morphine 2 MG/ML inj. syringe IV PRN (16:50)
--- NOTE | 2024-11-08 17:28 | CONSULTATION ---
DATE OF CONSULTATION: 11/08/2024 DICTATING PHYSICIAN: Best Goodrich MD REASON FOR CONSULTATION: The patient is evaluated at Dr. Salgado's request for upper GI bleeding manifested by hematemesis and melena. HISTORY: The patient developed hematemesis and melena. She was transferred to this hospital. This has happened before, but the patient reports that she has never had upper endoscopy. She does at times use ibuprofen. ALLERGIES: SHE HAS LISTED ALLERGIES INCLUDING NAPROSYN AND CETIRIZINE. PAST MEDICAL HISTORY: Nephrolithiasis. PAST SURGICAL HISTORY: Ureteral stenting. SOCIAL HISTORY: The patient does use heroin and methamphetamines. INPATIENT MEDICATIONS: Include docusate sodium, pantoprazole infusion. PHYSICAL EXAMINATION: GENERAL: The patient is resting in bed and appears to be in no acute distress. VITAL SIGNS: She is afebrile, pulse rate normal, respirations normal, blood pressure is low normal at 92/64. ABDOMEN: Soft and nontender. HEART: Pulse, regular rate and rhythm. LUNGS: Have good excursion on deep inspiration. NEUROLOGIC: She is speaking in full sentences. She is alert and oriented x 3. LABORATORY DATA: Hemoglobin yesterday at 11:30 in the evening was 10.8, this morning it is 10.4. INR 1.1, PTT 23. Comprehensive metabolic panel notable for a sodium 140, potassium 3.1, BUN 20, creatinine 0.76, albumin is 2.3. Liver tests are normal. Urinalysis negative. IMAGING DATA: Abdominal and pelvic CT scan done this morning without contrast showed possible gastric wall thickening. IMPRESSION: Upper GI bleed. PLAN: Upper endoscopy will be performed later today or tomorrow. The patient understood the risks, benefits, and alternatives to the procedure as well as the limitations of the procedure and wishes to proceed. Thank you for the referral. Best Goodrich MD TID: [id number] RECEIPT: [id number] MIKE/RAJNI
[2024-11-08 18:00] VITALS: BP 95/63; PULSE 90; RESP 16; TEMP 97.9; O2SAT 98
[2024-11-08 18:38] VITALS: BP 110/81; PULSE 70; RESP 18; TEMP 97.6; O2SAT 96
[2024-11-08 20:00] VITALS: RESP 16
[2024-11-08 22:00] VITALS: BP 96/66; PULSE 86; RESP 16; TEMP 97.6; O2SAT 100
[2024-11-09] VITALS (13 sets, daily range): BP systolic 87–141; BP diastolic 58–81; PULSE 76–100; RESP 13–24; TEMP 97–98.6; O2SAT 94–100
[2024-11-09 05:47] LABS: BASOPHILS % (AUTO) 0.4 % (0-1); EOSINOPHILS # (AUTO) 0.2 X10'3 (0-0.9); EOSINOPHILS % (AUTO) 3.9 % (0-6); HEMATOCRIT 26.3 % (35.0-45.0); LYMPHOCYTES # (AUTO) 2.1 X10'3 (1.1-4.8); LYMPHOCYTES % (AUTO) 41.2 % (21-51); MEAN CORPUSCULAR HEMOGLOBIN 30.6 PG (27.0-31.0); MEAN CORPUSCULAR HGB CONC 34.3 g/dL (33.0-36.5); MEAN CORPUSCULAR VOLUME 89.1 FL (78-98); MEAN PLATELET VOLUME 9.7 FL (7.4-10.4); MONOCYTES # (AUTO) 0.5 X10'3 (0-0.9); MONOCYTES % (AUTO) 9.3 % (2-12); NEUTROPHILS # (AUTO) 2.3 X10'3 (1.8-7.7); NEUTROPHILS % (AUTO) 45.2 % (42-75); PLATELET COUNT 191 X10'3 (140-440); RED BLOOD COUNT 2.95 X10'6 (4.20-5.60); RED CELL DISTRIBUTION WIDTH 13.3 % (11.5-14.5)
[2024-11-09 06:10] LABS: ANION GAP 5 (8-16); CHLORIDE 110 MMOL/L (99-107); GLUCOSE 95 MG/DL (70-104); POTASSIUM 3.5 MMOL/L (3.5-5.1); SODIUM 142 MMOL/L (135-145); TOTAL CARBON DIOXIDE 27.2 MMOL/L (24-32)
[2024-11-09 06:11] LABS: ALANINE AMINOTRANSFERASE 11 U/L (12-78); ALBUMIN 2.1 G/DL (3.4-5.0); ALBUMIN/GLOBULIN RATIO 0.9 (1.1-1.5); ALKALINE PHOSPHATASE 49 IU/L (46-116); ASPARTATE AMINO TRANSFERASE 11 U/L (10-37); BILIRUBIN,TOTAL 0.1 MG/DL (0.1-1.0); BLOOD UREA NITROGEN 9 MG/DL (7-18); BUN/CREATININE RATIO 16.1 (10.0-20.0); CALCIUM 7.6 MG/DL (8.5-10.1); CHOL/HDL RATIO 2.3 (0.00-4.99); CHOLESTEROL 81 MG/DL (0-200); CREATININE 0.56 MG/DL (0.40-0.90); HDL CHOLESTEROL 35 MG/DL (35-60); LDL CHOLESTEROL 41 MG/DL (50-100); TOTAL PROTEIN 4.4 G/DL (6.4-8.2); TRIGLYCERIDES 19 MG/DL (20-135); eCRCL 96 ML/MIN; eGFR > 90 ML/MIN
[2024-11-09] MEDS ORDERED: LIDOcaine 2% Viscous 15ml cup ONE (10:49)
[2024-11-09] MEDS ORDERED: MIDAZolam 1 MG/ML 5ML VIAL ONE (11:16)
[2024-11-09] MEDS ORDERED: fentaNYL/PF 50MCG/1 ML 2ML syringe ONE (11:16)
--- NOTE | 2024-11-09 11:16 | PROGRESS NOTE ---
Daily Progress Note Providers to CC ~ Antibiotic Timeout Antibiotic Ordered?: No Subjective CHIEF COMPLAINT NONE REVIEW OF SYSTEMS NEGATIVE FOR ALL 10 SYSTEMS REVIEWED Objective Vital Signs Date Time Temp Pulse Resp B/P (MAP) Pulse Ox O2 Delivery O2 Flow Rate FiO2 11/09/24 01:15 18 11/08/24 22:00 97.6 86 96/66 (76) 100 Room Air 11/08/24 11:30 0 Result Diagram: 11/09/245 11/09/24444 Patient is alert and oriented x3 no acute distress HEENT normocephalic nontraumatic head PERRLA. EOMI. Heart: Regular rate rhythm no murmurs gallops or rubs Lungs: normal work of breathing, normal oxygen saturation on room air Abdomen: Soft, nondistended, tender to palpation in the epigastric region only, no rebound or guarding Extremities no clubbing cyanosis or edema Coagulation Studies Laboratory Tests Test 11/08/24 02:00 Prothrombin Time 10.9 SECONDS (9.0-12.0) INR International Normalized Ratio 1.1 INR Activated Partial Thromboplast Time 23 SECONDS (22-32) Coagulation Comments Problem\Assessment\Plan Acute abdominal pain Acute blood loss normocytic normochromic anemia Hypovolemic shock, present on admission Dr. Kp moore consult appreciated Pending EGD later today Continue IV Protonix -Hypokalemia resolved Replace per protocol -Hypoalbuminemia When patient's diet is resumed we will put her on ensure -History of hepatitis-C, in remission Started on potassium replacement protocol. History of methamphetamine, cocaine abuse Active marijuana use Substance abuse navigator consulted patient counseled against it Continue with DVT prophylaxis PLAN DC HOME IN A.M. PATIENT COUNSELED AGAINST METHAMPHETAMINE AND COCAINE ABUSE Date of Service: November 09, 2024 Billing Provider: SARAH ARROYO MD Common Visit Codes: [id number] INP/OBS CARE(HIGH) SARAH ARROYO MD November 09, 2024 11:16
--- NOTE | 2024-11-09 12:15 | OPERATIVE REPORT ---
DATE OF SURGERY: 11/09/2024 DICTATING PHYSICIAN: Best Goodrich MD NAME OF THE PROCEDURE: Esophagogastroduodenoscopy. SUB PROCEDURES: Biopsy. HISTORY: The patient was admitted through the Emergency Room for upper GI bleeding, manifested by hematemesis, melena, and anemia. PREOPERATIVE DIAGNOSIS: Upper gastrointestinal bleed. 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 * Erosive gastritis. * Nonerosive duodenitis. CONSENT: Informed consent was obtained. The patient understood the risks, benefits, and alternatives to the procedure as well as the limitations of the procedure, which include but are not limited to perforation, infection, bleeding, and cardiopulmonary compromise from the sedatives used. MEDICATIONS: 4 mg versed and 100 mcg fentanyl. TECHNIQUE: The patient was placed in a left lateral decubitus position and an Olympus upper endoscope was inserted into the esophagus under direct visualization. The esophagus was normal. Examination of the stomach including retroflexed view was notable for a large, deep, chronic-appearing ulcer at the level of the angularis of the stomach. The ulcer was approximately 1 cm x 1.8 cm. It was clean based and nonbleeding. Multiple biopsies were taken from the edge of the ulcer. There were also multiple superficial erosions in the gastric antrum. Biopsies were obtained from this area. The pylorus was normal. In the duodenal bulb, there was patchy erythema. The second portion of the duodenum appeared normal. There was no blood whatsoever in the upper intestinal tract. The scope was withdrawn. The patient tolerated the procedure well. IMPRESSION: Gastric ulcer bleed, not currently active. PLAN: I will put her on a diet. If she tolerates the diet and her labs remain stable over the next 24 hours, she can be discharged. She needs to avoid aspirin and nonsteroidal anti-inflammatory drugs. She should have at least 2 months of pantoprazole 40 mg daily. I will phone her with the biopsy results. Thank you for the referral. Best Goodrich MD TID: [id number] RECEIPT: [id number] MIKE/ANAY
[2024-11-09] MEDS ORDERED: PANT-47 PO (13:20)
--- NOTE | 2024-11-09 13:26 | DISCHARGE SUMMARY ---
Discharge Summary Providers to CC ~ Discharge Summary Admission Diagnosis: gi bleed Hospital Course DATE OF ADMISSION: DATE OF DISCHARGE: Discharge Diagnosis\Comment: Upper GI bleed methamphetamine and NSAID abuse anemia Operations\Procedures: EGD Consultants: Dr. Goodrich-GI doctor Complications: None Condition on DC: Stable New Medications: Pantoprazole Sodium (PROTONIX tablet) 40 Mg Tablet.dr 40 MG PO BID for 30 Days, #60 TAB.SR Continued Medications: Home Med List (No Home Medications) Each Discharge Summary: Patient is a 38-year-old female that has a longstanding history of methamphetamine abuse was admitted on 11/08/2024 with upper GI bleed History of Present Illness This is a 38-year-old female with a history of heroin, meth amphetamine and heroin abuse, kidney stones s/p ureteral stent, hepatitis-C in remission, was transferred from the ED of [facility] for the management of upper GI bleed. Patient mentions that her symptoms started off as abdominal pain associated with nausea and vomiting one week ago in the lower abdominal quadrant. She was not able to hold anything down her stomach and was dehydrated and very sick. She took methamphetamine to help her abdominal pain after being abstinent for five years. After consumption of methamphetamine her abdominal pain worsened and started having coffee-ground emesis and black stools since the last two days. She denies any alcohol excessive alcohol consumption, usage of NSAIDs or history of any peptic ulcer disease. She did have a history of hepatitis-C in the past and finished six weeks treatment in outpatient. She smokes cigarettes occasionally and smoked amphetamine two days ago. She smokes marijuana regularly. She denies any fever, bright red stools. Physical exam patient is alert and oriented x4 in no acute distress lying down comfortably speaking in full sentences HEENT normocephalic nontraumatic head CVS first and second heart sounds are regular rate rhythm no murmurs gallops or rubs Respiratory system is clear to auscultate bilaterally no rales rhonchi crackles or wheezing Abdomen is soft bowel sounds are positive nontender nondistended Extremities no clubbing cyanosis or edema Hospital course patient is a pleasant 38-year-old female with a longstanding history of methamphetamine abuse admitted for an upper GI bleed. We made her NPO consulted Dr. Goodrich - who is on-call for GI. He did an EGD saw large ulcer and patient was started on IV Protonix switched over to oral Protonix. Her diet was advanced. Her drop in hemoglobin was not significant enough to require any transfusions. advised against methamphetamine abuse advised against drinking alcohol advised against NSAIDs nicotine abuse and alcohol abuse. Patient is advised for close follow up in one week with Dr. Goodrich as well as PCP. *Problems/Diagnosis: (1) Acute blood loss anemia Status: Acute (2) GI bleed Status: Acute Total Time Spent on D/C: > 30 Minutes Date of Service: November 10, 2024 Billing Provider: SARAH ARROYO MD Common Visit Codes: 19820-RNK/OBS DISCH DAY >30min SARAH ARROYO MD November 09, 2024 13:26
[2024-11-09 16:06] LABS: HEMATOCRIT 28.6 % (35.0-45.0); HEMOGLOBIN 9.7 g/dl (12.0-16.0); MEAN CORPUSCULAR HEMOGLOBIN 30.5 PG (27.0-31.0); MEAN CORPUSCULAR HGB CONC 33.9 g/dL (33.0-36.5); MEAN CORPUSCULAR VOLUME 89.9 FL (78-98); MEAN PLATELET VOLUME 9.7 FL (7.4-10.4); PLATELET COUNT 221 X10'3 (140-440); RED BLOOD COUNT 3.18 X10'6 (4.20-5.60); RED CELL DISTRIBUTION WIDTH 13.6 % (11.5-14.5); WHITE BLOOD COUNT 5.9 X10'3 (4.5-11.0)
[2024-11-09] MEDS: HYDROcodone/acetaminophen 5mg/325mg tablet PO PRN (20:26)
[2024-11-09] MEDS: magnesium hydroxide 30ml (MOM) UD suspension PO PRN (22:25)
[2024-11-10 02:00] VITALS: BP 151/71; PULSE 110; RESP 24; TEMP 98; O2SAT 99
[2024-11-10 05:14] LABS: BASOPHILS % (AUTO) 0.6 % (0-1); EOSINOPHILS # (AUTO) 0.2 X10'3 (0-0.9); EOSINOPHILS % (AUTO) 2.6 % (0-6); HEMATOCRIT 26.3 % (35.0-45.0); HEMOGLOBIN 8.8 g/dl (12.0-16.0); LYMPHOCYTES # (AUTO) 1.8 X10'3 (1.1-4.8); LYMPHOCYTES % (AUTO) 29.9 % (21-51); MEAN CORPUSCULAR HEMOGLOBIN 29.9 PG (27.0-31.0); MEAN CORPUSCULAR HGB CONC 33.5 g/dL (33.0-36.5); MEAN CORPUSCULAR VOLUME 89.3 FL (78-98); MEAN PLATELET VOLUME 10.4 FL (7.4-10.4); MONOCYTES # (AUTO) 0.5 X10'3 (0-0.9); MONOCYTES % (AUTO) 8.8 % (2-12); NEUTROPHILS # (AUTO) 3.5 X10'3 (1.8-7.7); NEUTROPHILS % (AUTO) 58.1 % (42-75); PLATELET COUNT 220 X10'3 (140-440); RED BLOOD COUNT 2.95 X10'6 (4.20-5.60); RED CELL DISTRIBUTION WIDTH 13.3 % (11.5-14.5)
[2024-11-10 05:41] LABS: ALANINE AMINOTRANSFERASE 10 U/L (12-78); ALBUMIN 2.2 G/DL (3.4-5.0); ALBUMIN/GLOBULIN RATIO 0.9 (1.1-1.5); ALKALINE PHOSPHATASE 57 IU/L (46-116); ANION GAP 5 (8-16); ASPARTATE AMINO TRANSFERASE 17 U/L (10-37); BILIRUBIN,TOTAL 0.1 MG/DL (0.1-1.0); BLOOD UREA NITROGEN 6 MG/DL (7-18); BUN/CREATININE RATIO 7.1 (10.0-20.0); CALCIUM 7.9 MG/DL (8.5-10.1); CHLORIDE 109 MMOL/L (99-107); CREATININE 0.85 MG/DL (0.40-0.90); GLUCOSE 132 MG/DL (70-104); MAGNESIUM 1.7 MG/DL (1.5-2.4); POTASSIUM 3.3 MMOL/L (3.5-5.1); SODIUM 140 MMOL/L (135-145); TOTAL CARBON DIOXIDE 25.8 MMOL/L (24-32); TOTAL PROTEIN 4.7 G/DL (6.4-8.2); eCRCL 63 ML/MIN; eGFR 74 ML/MIN
[2024-11-10 06:00] VITALS: BP 103/64; PULSE 72; RESP 13; TEMP 97.3; O2SAT 96
[2024-11-10] MEDS: potassium Cl 20 mEq SR tablet PO PRN (08:22)
== END 2024-11-10 11:20 | disposition home or self-care (01) | DRG 241 ==
LOC: ER 23:02 → ED HOLD 11-08 00:54 → SUR 3N 11-08 19:07
PROVIDERS: ADMIT Internal Medicine; ATTEND Internal Medicine
PROC: 0DB78ZX Excision of Stomach, Pylorus, Via Natural or Artificial Opening Endoscopic, Diagnostic (ICD-10-PCS; principal; 2024-11-09)
DX: K25.4 Chronic or unspecified gastric ulcer with hemorrhage (principal); R57.1 Hypovolemic shock; D62 Acute posthemorrhagic anemia; E88.09 Other disorders of plasma-protein metabolism, not elsewhere classified; E83.51 Hypocalcemia; F17.210 Nicotine dependence, cigarettes, uncomplicated; E87.6 Hypokalemia; F12.10 Cannabis abuse, uncomplicated; F10.10 Alcohol abuse, uncomplicated; Y90.9 Presence of alcohol in blood, level not specified; K29.60 Other gastritis without bleeding; K29.80 Duodenitis without bleeding; Z79.899 Other long term (current) drug therapy; Z88.8 Allergy status to other drugs, medicaments and biological substances; Z87.442 Personal history of urinary calculi
CPT/HCPCS: 36415; 43239; 71045; 74176; 80053; 80061; 81003; 83036; 83690; 83735; 83880; 84443; 84484; 84703; 85025; 85027; 85610; 85651; 85730; 86885; 86900; 86901; 87081; 97161; 97530; 99152; 99285; A4620; A6258; G0378; J1171; J2250; J2270; J2405; J2470; J3010; J3480; J7030